=== PATIENT | female | born 1975 | race Caucasian/White ===

== ENCOUNTER 2023-06-18 10:26 | Emergency (ER) | payer BC, SELFPAY ==
[2023-06-18 10:46] VITALS: BP 138/106; PULSE 93; RESP 18; TEMP 37.1; O2SAT 98
--- NOTE | 2023-06-18 11:07 | ED.URI ---
HPI - URI/Sore Throat General Chief Complaint: Upper Respiratory Infection Stated Complaint: COUGH/CONGESTION Time Seen by Provider: 06/18/23 11:07 Source: patient Mode of arrival: ambulatory Limitations: no limitations History of Present Illness HPI Narrative: 48-year-old female presents with complaint of nasal congestion, sinus pressure, postnasal drainage, cough for 8 days. Afebrile. Reports coughing up and blowing out green drainage. Taking Mucinex and jjep-byq-byvnwae sinus medication with no relief of symptoms. No chest pain or shortness of breath. All systems reviewed and negative except as noted above. Related Data Home Medications Medication Instructions Recorded Confirmed srkufoep-xscysgx-fhvf-iron 18 tablet PO 11/23/21 01/06/23 mg-FA 400 mcg-vit K 25 mcg tablet (One-A-Day Women's Complete(with vit K)) Allergies Allergy/AdvReac Type Severity Reaction Status Date / Time No Known Allergies Allergy Verified 01/06/23 10:50 Review of Systems Review of Systems: CONSTITUTIONAL: Denies fever, chills, or sweats. EYES: Denies visual changes, redness, or discharge. ENT: Reports rhinorrhea, congestion. Denies sore throat, or otalgia. CARDIOVASCULAR: Denies chest pain, palpitations, or edema. RESPIRATORY: Reports cough. Denies dyspnea. GASTROINTESTINAL: Denies abdominal pain, nausea, vomiting, or diarrhea. GENITOURINARY: Denies dysuria or hematuria. SKIN: Denies rash or itching. MUSCULOSKELETAL: Denies back pain, joint pain, or myalgia. NEUROLOGIC: Denies headache, numbness, or weakness. PSYCHIATRIC: Denies anxiety or depression. All other systems reviewed are negative, except as documented in HPI. [facility] Past Medical History Medical History History of COVID-19 Hyperlipidemia Stress at home Vitamin D deficiency Surgical History Surgical History Hx laparoscopic cholecystectomy Family History Family History Father Hypertension Mother Hypertension Family history of colonic diverticulitis Grandparent Cerebrovascular accident Family history of Parkinson's disease Family history of pancreatic cancer Family history of lung cancer Social History Social History Smoking status: Never smoker Second hand tobacco smoke exposure: No Alcohol intake: current Alcohol use details: seldom; socially Substance use: never Substance use type: does not use Spiritual care concerns: No Agree to blood products: Yes Comments At time of signature, agree with nursing past medical, surgical, social and family history. There is no relevant family history pertinent to the presenting complaint. Exam Narrative: GENERAL: This is a well-nourished, well-developed patient, in no apparent distress. HEAD: normocephalic, atraumatic. EYES: PERRL. Sclera clear/white. Vision is grossly intact. EARS: External ears normal, auditory canals clear and without drainage, fluid bilateral TMs without erythema or perforation. Hearing grossly intact. NOSE: External nose normal with erythema and mild swelling to nares with mild congestion, skin maxillary sinus tenderness on palpation bilaterally. THROAT: Mucous membranes moist, erythema with postnasal drainage NECK: Neck supple, non-tender without lymphadenopathy, masses or thyromegaly. CARDIOVASCULAR: Regular rate and rhythm without murmurs, gallops, or rubs. RESPIRATORY: Clear to auscultation. Breath sounds equal bilaterally. No wheezes, rales, or rhonchi. GASTROINTESTINAL: Abdomen soft, non-tender, nondistended. Bowel sounds are active. No hepato-splenomegaly, or palpable masses. No guarding. SKIN: warm, Dry, intact with no suspicious lesions or rash, good texture and turgor. NEURO: awake, alert, and oriented to person, place and time.
== END 2023-06-18 11:38 | disposition home or self-care (01) ==
PROVIDERS: Emergency Provider Nurse Practitioner Family; PCP Family Medicine
DX: J01.90 Acute sinusitis, unspecified (principal); E78.5 Hyperlipidemia, unspecified; Z86.16 Personal history of COVID-19
CPT/HCPCS: 99213; G0463

== ENCOUNTER 2024-08-16 13:56 | Outpatient (CLI) | payer OTHER, SELFPAY ==
--- NOTE | 2024-08-16 14:20 | ECG_ITS ---
Test Date: 2024-08-16 14:29:27 Measurements Intervals [place] Rate: 77 P: 22 IL: 140 QRS: -9 QRSD: 85 T: -5 QT: 369 QTc: 420 Interpretive Statements SINUS RHYTHM WITH SINUS ARRHYTHMIA LOW QRS VOLTAGE IN PRECORDIAL LEADS PATTERN CONSISTENT WITH PULMONARY DISEASE BORDERLINE ST-T WAVE ABNORMALITY- ANT/INF LEADS BASELINE ARTIFACT- I, II, III, AVR, AVL, AVF BORDERLINE ECG No previous ECG available for comparison Electronically Signed On 08-16-2024 15:34:36 CDT by Collin Westbrook D.O.
--- OUTSIDE RECORDS SUMMARY | 2024-08-16 14:30 | XMS_ITS | Clinical Summary ---
Author Organization [facility] Address [address] [place] [address] Care Team Providers Care Race Board Attendant Name Role Phone Leigha Doyle MD Primary Care Provider [phone] Allergies No known active allergies Medications lisinopriL (PRINIVIL,ZESTR MD) 10 mg tablet Take 2 tablets (20 mg total) by mouth daily 06/15/2023 Active Active Problems Problem Noted Date Diagnosed Date Routine gynecological examination 07/12/2024 Assessment & Plan (07/12/2024 9:50 AM VICE ADMIRAL): Here for annual exam. 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 Encouraged regular exercise and healthy diet and lifestyle. Monthly SBEs encouraged. Annual mammograms recommended. Encounter for IUD insertion 08/15/2023 Assessment & Plan (08/15/2023 9:37 AM CDT): Mirena IUD inserted without difficulty. Pt tolerated well. Pt to call with any abnormal bleeding or pain and will check pelvic ultrasound. Well woman exam with routine gynecological exam 07/06/2023 Assessment & Plan (07/06/2023 4:09 PM VICE ADMIRAL): Here for annual exam. 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 Encouraged regular exercise and healthy diet and lifestyle. Monthly SBEs encouraged. Annual mammograms recommended. Recommend patient schedule screening colonoscopy. Reviewed risks benefits and potential complications of IUD. Patient may be interested in Kyleena IUD of Mirena IUD. We will decide the day of insertion. Name and number plastic surgeon given for referral for possible breast reduction. 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/2013 Overview (08/11/2016): PLANTAR FIBROMATOSIS Hypertension 09/22/2013 Overview (08/11/2016): HYPERTENSION NOS Sleep apnea 09/22/2013 Overview (08/11/2016): OTH UNSPCF SLEEP APNEA Low back pain 09/22/2013 Overview (08/11/2016): LUMBAGO Anxiety state 09/22/2013 Overview (08/11/2016): ANXIETY STATE NOS Encounters Date Type Department Care Team Description 08/07/2024 3:30 PM CDT Ancillary Procedure [facility] Breast Imaging [address] [place] [address] Screening mammogram, encounter for 07/12/2024 1:56 PM VICE ADMIRAL - 07/12/2024 11:59 PM VICE ADMIRAL Hospital Encounter [facility] [address] [place] [id number] Routine gynecological examination; Screening for malignant neoplasm of the cervix; Special screening examination for human papillomavirus (HPV) Discharge Disposition: Discharge to home or self care 07/12/2024 9:00 AM VICE ADMIRAL Office Visit [facility] [address] [place] [address] Peyton Jackman MD Routine gynecological examination (Primary Dx); Screening for malignant neoplasm of the cervix; Special screening examination for human papillomavirus (HPV) from Last 3 Months Immunizations Immunization Administration Dates Next Due Tdap 10/28/2006 Surgical History Surgery Date Site/Laterality Comments CHOLECYSTECTOMY 2007 Cholecystectomy SECTION 1997 son, 2002 daughter Medical History Medical History Date Comments Hypertension Family History Medical History Relation Name Comments Glioneuroma Daughter Hyperlipidemia Father Hyperlipidemi a; Hypertension Father Hypertension; Pancreatic cancer Maternal Grandmother Hypertension Mother Hypertension; Nephrolithiasis Mother kidney stone s; Relation Name Status Comments Daughter Alive Father Maternal Grandmother Mother Social History Tobacco Use Types Packs/Day Years Used Date Smoking Tobacco: Never Passive Smoke Exposure: Never Smokeless Tobacco: Never Tobacco Cessation:Counseling Given: Not Answered Alcohol Use Standard Drinks/Week Comments Yes 0 (1 standard drink = 0.6 oz pur e alcohol) occassionally AUDIT-C Answer Date Recorded Q1: How often do you have a drink containing alc ohol? 2-4 times a month 07/12/2024 Q2: How many drinks containi ng alcohol do you have on a typical day when you are drinking? 1 or 2 07/12/2024 Frequency of Binge Drinking Not on file 10/2024 Personal Safety Answer Date Recorded Have you ever been in or are you currently in a harmful physical or emotional relationship or is someone making you feel afraid or unsafe? Denies 12/29/2023 Comments No Sex and Gender Information Value Date Recorded Sex Assigned at Not on file Legal Sex Female 11:54 PM VICE ADMIRAL Gender Identity Not on file Sexual Orientation Not on file Obstetrics History Para Term AB IAB SAB Ectopic Multiple Livin g Live Births 2 2 2 2 2 Date Outcome GA Total Labor Labor/2nd/3rd Weight Sex Type Anes PTL Allyn A1 A5 Name Clin 1997 Term M C-Sec tion Living 2002 Term F C-Sec tion Living Last Filed Vital Signs Vital Sign Reading Time Taken Comments Blood Pressure 122/80 07/12/2024 8:45 AM VICE ADMIRAL Pulse 82 12/29/2023 9:39 PM CDT Temperature 36.9 C (98.5 F) 12/29/2023 3:19 PM CDT Respiratory Rate 16 12/29/2023 9:39 PM CDT Oxygen Saturation 100% 12/29/2023 9:39 PM CDT Inhaled Oxygen Concentration - - Weight 92.1 kg (203 lb) 07/12/2024 8:45 AM VICE ADMIRAL Height 165.1 cm (5' 5 ) 07/12/2024 8:45 AM VICE ADMIRAL Body Mass Index 33.78 07/12/2024 8:45 AM VICE ADMIRAL Plan of Treatment Health Maintenance Due Date Last Done Comments Albumin Creatinine Ratio, Urine 1975 Colon Cancer Screening-Colonoscopy 1975 Depression Screening 1975 Hemoglobin A1C 1975 Hepatitis C Screening 1975 Dilated Eye Exam 1975 Foot Exam 1975 Lipid Panel 1975 Hepatitis B Screening 1993 Pneumococcal vaccine <65 (1 of 2 - PCV) 1994 DTaP/Tdap/Td Vaccine (2 - Td or Tdap) 10/28/2016 10/28/2006 Covid-19 Vaccine (2 - 2023-2 5 season) 2024 03/28/2021 eGFR 12/28/2024 12/29/2023 Influenza Vaccine (Season Ended) 2025 Cervical Cancer Screening 07/12/20252024, 06/29/2023, 06/29/2023, Additional history exists Regular Well Visit/Exam 18-64 07/12/2025 07/12/2024, 06/29/2023 Breast Cancer Screening-Mammogram 08/07/2025 08/07/2024, 07/26/2023, 06/28/2022, Additional history exists Procedures Procedure Name Priority Date/Time Associated Diagnosis Comments SCREENING MAMMOGRAM BILATERAL W TE[place]O Schedule Routine, Read Routine (OP Routine) 08/07/2024 3:48 PM CDT Screening mammogram, encounter for THINPREP PROCESSING (MOLECULAR COMPONENT) Routine 07/12/2024 2:11 PM VICE ADMIRAL Routine gynecological examination Screening for malignant neoplasm of the cervix Special screening examination for human papillomavirus (HPV) PAP WITH REFLEX TO HIGH RISK HPV Routine 07/12/2024 9:22 AM VICE ADMIRAL Routine gynecological examination Screening for malignant neoplasm of the cervix Special screening examination for human papillomavirus (HPV) EGFR STAT 12/29/2023 8:19 PM CDT from Last 3 Months or Most Recently Relevant to Health Maintenance Results * Screening Mammogram Bilateral W Te[place] (08/07/2024 3:48 PM CDT) Anatomical Region Laterality Modality Breast Bilateral Mammography Narrative 08/07/2024 4:39 PM CDT Examination: Screening Mammogram Bilateral W Teodoro: 08/07/24 Prior Study Comparisons: Relevant prior studies available at the time of interpretation were reviewed. Findings: Bilateral There is no suspicious mass, calcification, or architectural distortion in either breast. There are scattered areas of fibroglandular density. The patient will be notified of results by letter. Impression: BI-RADS ATLAS category (overall): 2 - Benign Routine Screening Mammogram in 1 Yr is recommended for bilateral Overall Assessment: 2 - Benign us Self Screening Mammogram IMG MAMMO PROCEDURES Fi nal Result * ThinPrep processing (Molecular component) (07/12/2024 2:11 PM VICE ADMIRAL) ThinPrep processing (Molecular component) Specimen received for processing. Endocervical 07/12/2024 2:11 PM VICE ADMIRAL 07/12/2024 2:12 PM VICE ADMIRAL Peyton Jackman MD LAB BODY FLUIDS AND STOOLS ORDERABLES Final Result [place] [address] [facility] [facility] Department [place] [address] * Pap with reflex to High Risk HPV and Genotyping (Cytology Component) (07/12/2024 9:22 AM VICE ADMIRAL) Endocervical (Pap test) 07/12/2024 9:22 AM VICE ADMIRAL 07/13/2024 10:36 AM VICE ADMIRAL Narrative PATHOLOGY [facility] - 07/18/2024 1:41 PM CDT EPIC results best viewed via link to PDF [place] [address] [facility], [place], [place] [address] Tele: Yanni Pino MD - Last Sorter CYTOLOGY REPORT Note to Patients: This report may contain a detailed description of human tissue sent by a health care provider to the laboratory for pathologic evaluation. The content of this report is essential for diagnosis and may provide important critical findings. This information may be unfamiliar to patients to review without a medical professional present. It is advised that the patient review this report in the presence of a health care provider who can answer questions and explain the details. Patient Name: CHRISSY MARTÍNEZ Address: [address] [place] [address]- Gender: F : 1975 (Age: 49) Service: Location: [facility] #: [id number] Patient Type: [facility] SPECIMEN Taken: 07/12/2024 Reported: 07/18/2024 Physician(s): Peyton Jackman M.D. FINAL DIAGNOSIS: SOURCE OF SPECIMEN - ThinPrep Pap w/ reflex HPV: STATEMENT OF ADEQUACY Source: Cervical/Endocervical - Satisfactory for interpretation - Endocervical /Transformation Zone component present - Case screened using computer assisted imaging technology GENERAL CATEGORIZATION: - Negative for intraepithelial lesion or malignancy letw/07/18/2024 13:41Sherie Vaz RN, CT (ASCP) Report Reviewed and Electronically Signed By Sherie Vaz RN, CT (ASCP)Clerical Data Follow A; G0145 CLINICAL DIAGNOSIS AND HISTORY Last Menstrual Period: 05/11/24 Contraceptive History: IUD REPORT IMAGES AND/OR SCANNED DOCUMENTS ONLY VIEWABLE IN PDF FORMAT The Pap test is a screening test used to aid in the detection of cervical cancer and its precursors. It should not be the sole means by which malignant and premalignant lesions are diagnosed. Both false negative and false positive results may occur. It also has poor sensitivity for the detection of endometrial lesions and should not be used to evaluate suspected endometrial abnormalities. For these reasons it is most important to obtain Pap tests at regular intervals, as recommended by your physician or nurse practitioner. Frozen section, operating room consultation, gross examination and dissection, and case sign out may have been performed in part or completely in the following laboratories: [facility], [facility] [place] [facility], [address], [place] [address]. Peyton Jackman MD LAB CYTOLOGY ORDERABLES Fin al Result PATHOLOGY [facility] Laboratory [address] [address] * eGFR (12/29/2023 8:19 PM CDT) eGFR >90 >=60 mL/min/1. 73 m2 Comment: Interpretive Data Reference Interval Normal >/= 90 mL/min/1.73m2 Mildly decreased* 60 - 89 mL/min/1.73m2 Mildly to moderately decreased 45 - 59 mL/min/1.73m2 Moderately to severely decreased 30 - 44 mL/min/1.73m2 Severely decreased 15 - 29 mL/min/1.73m2 Kidney Failure < 15 mL/min/1.73m2 *Relative to young adult level Estimated glomerular filtration rate is determined by the 2020 CKD-EPI equation recommended by the National Kidney Foundation (A Unifying Approach to GFR Estimation: Recommendations of the NKF-ASK Task Force on Reassessing the Inclusion of Race in Diagnosing Kidney Disease, JASN 2020). The CKD-EPI equation should not be used for patients with unstable renal function and has not been validated in children and those over 70. Current interpretive data was last reviewed 2021. Blood 12/29/2023 8:19 PM CDT 12/29/2023 8:34 PM CDT Sho [facility] LAB BLOOD ORDERABLES Final Re sult [place] [address] [address] Department [place] [address] from Last 3 Months or Most Recently Relevant to Health Maintenance Insurance ANTHEM ACCESS BLUE ACCESS OOS BLUE ACCESS OOS BLUE ACCESS OOS Care Teams Race Board Attendant Relationship Specialty Start Date End Date Leigha Doyle MD PCP - General 07/01/16
--- OUTSIDE RECORDS SUMMARY | 2024-08-16 14:30 | XMS_ITS | Referral Summary ---
Author Organization [facility] Address [facility] [place] [address] Care Team Providers Care Pickle Water Pump Operator Name Role Phone Leigha Doyle MD Primary Care Provider [phone] Encounters Date Type Department Care Team Description 08/07/2024 3:30 PM CDT Ancillary Procedure [facility] Breast Imaging [id number] [place] [phone] Screening mammogram, encounter for 07/12/2024 1:56 PM PUBLIC HEALTH AIDE - 07/12/2024 11:59 PM PUBLIC HEALTH AIDE Hospital Encounter [address] [place] [address] Routine gynecological examination; Screening for malignant neoplasm of the cervix; Special screening examination for human papillomavirus (HPV) Discharge Disposition: Discharge to home or self care 07/12/2024 9:00 AM PUBLIC HEALTH AIDE Office Visit [facility] [address] [place] [address] Peyton Jackman MD Routine gynecological examination (Primary Dx); Screening for malignant neoplasm of the cervix; Special screening examination for human papillomavirus (HPV) from Last 3 Months Allergies No known active allergies Medications lisinopriL (PRINIVIL,ZESTR IL) 10 mg tablet Take 2 tablets (20 mg total) by mouth daily 06/15/2023 Active Active Problems Problem Noted Date Diagnosed Date Routine gynecological examination 07/12/2024 Assessment & Plan (07/12/2024 9:50 AM PUBLIC HEALTH AIDE): Here for annual exam. Normal tape weaver exam today. Encouraged regular exercise and healthy [...] 07/06/2023 Assessment & Plan (07/06/2023 4:09 PM PUBLIC HEALTH AIDE): Here for annual exam. Normal tape weaver exam today. Encouraged regular exercise and healthy [...] state 09/22/2013 Overview (08/11/2016): ANXIETY STATE NOS Immunizations Immunization Administration Dates Next Due Tdap 10/28/2006 Social History Tobacco Use Types Packs/Day Years [...] on file Legal Sex Female 11:54 PM PUBLIC HEALTH AIDE Gender Identity Not on file Sexual Orientation Not on file Last Filed Vital Signs Vital Sign Reading Time Taken Comments Blood Pressure 122/80 07/12/2024 8:45 AM PUBLIC HEALTH AIDE Pulse 82 12/29/2023 9:39 PM CDT Temperature 36.9 C (98.5 F) 12/29/2023 3:19 PM CDT Respiratory Rate 16 12/29/2023 9:39 PM CDT Oxygen Saturation 100% 12/29/2023 9:39 PM CDT Inhaled Oxygen Concentration - - Weight 92.1 kg (203 lb) 07/12/2024 8:45 AM PUBLIC HEALTH AIDE Height 165.1 cm (5' 5 ) 07/12/2024 8:45 AM PUBLIC HEALTH AIDE Body Mass Index 33.78 07/12/2024 8:45 AM PUBLIC HEALTH AIDE Plan of Treatment Not on file Procedures Procedure Name Priority Date/Time Associated Diagnosis Comments SCREENING MAMMOGRAM BILATERAL W TEODORO Schedule Routine, Read Routine (OP Routine) 08/07/2024 3:48 PM CDT Screening mammogram, encounter for THINPREP PROCESSING (MOLECULAR COMPONENT) Routine 07/12/2024 2:11 PM PUBLIC HEALTH AIDE Routine gynecological examination Screening for malignant neoplasm of the cervix Special screening examination for human papillomavirus (HPV) PAP WITH REFLEX TO HIGH RISK HPV Routine 07/12/2024 9:22 AM PUBLIC HEALTH AIDE Routine gynecological examination Screening for malignant neoplasm [...] ThinPrep processing (Molecular component) (07/12/2024 2:11 PM PUBLIC HEALTH AIDE) ThinPrep processing (Molecular component) Specimen received for processing. Endocervical 07/12/2024 2:11 PM PUBLIC HEALTH AIDE 07/12/2024 2:12 PM PUBLIC HEALTH AIDE Peyton Jackman MD LAB BODY FLUIDS AND STOOLS ORDERABLES Final Result LOW [facility] [address] Department [place] [address] * Pap with reflex to High Risk HPV and Genotyping (Cytology Component) (07/12/2024 9:22 AM PUBLIC HEALTH AIDE) Endocervical (Pap test) 07/12/2024 9:22 AM PUBLIC HEALTH AIDE 07/13/2024 10:36 AM PUBLIC HEALTH AIDE Narrative PATHOLOGY [facility] - 07/18/2024 1:41 PM CDT EPIC results best viewed via link to PDF [address] [address] Tele: Yanni Pino MD - Gas Dispenser CYTOLOGY REPORT Note to Patients: This report [...] questions and explain the details. Patient Name: ROMEO MARTÍNEZ Address: [address] [place] [address]- Gender: F : 1975 (Age: 49) Service: Location: N : [id number] [facility] #: [id number] Patient Type: [facility] SPECIMEN Taken: 07/12/2024 Reported: 07/18/2024 Physician(s): Peyton [...] part or completely in the following laboratories: [facility], [address], [place] [address] [facility], [address] [facility], [place] [address]. us Peyton Jackman MD LAB CYTOLOGY ORDERABLES Fin al Result PATHOLOGY [facility] Laboratory Receiving [address] [place], [place] [id number] * eGFR (12/29/2023 8:19 PM CDT) eGFR [...] 8:19 PM CDT 12/29/2023 8:34 PM CDT us Sho DEMARCO LAB BLOOD ORDERABLES Final Re sult [place] [address] [address] [place] [address] from Last 3 Months or Most Recently Relevant to Health Maintenance Insurance ANTHEM ACCESS BLUE ACCESS OOS BLUE ACCESS OOS [employer] OOS Member Subscriber Plan / Payer (Ef fective 2019-Present) Name:Romeo Martínez Relation to Subscriber:Self Name:Romeo Martínez Payer ID:[id number] (NAIC) Type: STANLEY Address: [facility] [id number] Care Teams Pickle Water Pump Operator Relationship Specialty Start Date End Date Leigha Doyle MD PCP - General 07/01/16
== END 2024-08-16 13:57 | disposition home or self-care (01) ==
PROVIDERS: PCP Family Medicine; Visit Provider Surgery Plastic and Reconstructive Surgery
DX: Z01.810 Encounter for preprocedural cardiovascular examination (principal); I10 Essential (primary) hypertension; I49.8 Other specified cardiac arrhythmias
CPT/HCPCS: 93005

== ENCOUNTER 2024-08-21 01:15 | Day surgery (SDC) | payer OTHER, SELFPAY ==
[2024-08-14 14:53] VITALS: BMI 32.3
--- NOTE | 2024-08-14 15:01 | PC.NURSE ---
Report to the Outpatient Waiting Room, entrance under the green pavilion located off [facility], at time _0600_ on date _[id number]_. Planned Procedure Time: _0730_.? Time changes happen often and if your time is changed the preop area will call you the afternoon before. - You and your visitor will be asked to self-screen and do not enter if you have any COVID symptoms. Please call surgeon if you need to reschedule. - A mask is optional within the hospital at this time. Patients may have clear liquids (water, carbonated beverages, clear teas, apple juice) until 3 hours prior to surgery with a maximum of 20 ounces. - No food from midnight until time of surgery and no smoking, or chewing tobacco (or any form of nicotine). No chewing gum, candy or mints. Take only the following medications with a SIP of water on the morning of surgery: ___None____ DO NOT STOP ANY OF YOUR OTHER PRESCRIPTION MEDICATIONS PRIOR TO SURGERY EXCEPT THE FOLLOWING Hold all vitamins and supplements for 3 days per anesthesiologist. Medications to discontinue per physician Date to take last plxd___[id number]____ Please no make-up, nail uruguayan, hairspray, perfume, deodorant, or body powder the day of surgery.? No jewelry (including any body piercings) or valuables the day of surgery, leave them at home.? Please take a shower or bath the night before, or the morning of, surgery with an antibacterial soap.? Wear comfortable, loose fitting clothing.? - Jewelry must be removed prior to entering the operating room.? Rings and piercings that are not removed may be cut off. - The hospital will not accept responsibility for valuables.? - Please leave all valuables, including medications, at home the day of surgery. If you are going home after surgery, a licensed swing driver must drive you home.? - NO public transportation without another adult if you receive anesthesia. - We recommend that an adult stay with you for 24 hours following discharge. - We also recommend that you do not drive, make important decision, drink alcoholic beverages, or take any drugs that were not prescribed by your health care provider for at least 24 hours after your discharge time. Follow any additional instructions given to you from your surgeon. Telephone instructions given to __Chrissy___and asked if any additional questions and then verbalized understanding. Patient advised to call surgeon office or pre surgery nurse liaison [phone] if any additional questions.
[2024-08-21] VITALS (9 sets, daily range): BP systolic 94–130; BP diastolic 60–93; PULSE 63–88; RESP 14–17; TEMP 36.4–36.6; O2SAT 95–100; BMI 32.1
--- OUTSIDE RECORDS SUMMARY | 2024-08-21 01:17 | XMS_ITS | Referral Summary ---
Author Organization [facility] Address [facility] [place] [address] Care Team Providers Care Flying Shear Operator Name Role Phone Leigha Doyle MD Primary Care Provider [phone] Encounters Date Type Department Care Team Description 08/07/2024 3:30 PM CDT Ancillary Procedure [facility] Breast Imaging [id number] [place] [phone] Screening mammogram, encounter for 07/12/2024 1:56 PM SPA SUPERVISOR - 07/12/2024 11:59 PM SPA SUPERVISOR Hospital Encounter [address] [place] [address] Routine gynecological examination; Screening for malignant neoplasm of the cervix; Special screening examination for human papillomavirus (HPV) Discharge Disposition: Discharge to home or self care 07/12/2024 9:00 AM SPA SUPERVISOR Office Visit [facility] [address] [place] [address] Peyton Jackman MD Routine gynecological [...] 07/12/2024 Assessment & Plan (07/12/2024 9:50 AM SPA SUPERVISOR): Here for annual exam. Normal visual merchandising director exam today. Encouraged regular exercise and healthy [...] 07/06/2023 Assessment & Plan (07/06/2023 4:09 PM SPA SUPERVISOR): Here for annual exam. Normal visual merchandising director exam today. Encouraged regular exercise and healthy [...] on file Legal Sex Female 11:54 PM SPA SUPERVISOR Gender Identity Not on file Sexual Orientation Not on file Last Filed Vital Signs Vital Sign Reading Time Taken Comments Blood Pressure 122/80 07/12/2024 8:45 AM SPA SUPERVISOR Pulse 82 12/29/2023 9:39 PM CDT Temperature 36.9 C (98.5 F) 12/29/2023 3:19 PM CDT Respiratory Rate 16 12/29/2023 9:39 PM CDT Oxygen Saturation 100% 12/29/2023 9:39 PM CDT Inhaled Oxygen Concentration - - Weight 92.1 kg (203 lb) 07/12/2024 8:45 AM SPA SUPERVISOR Height 165.1 cm (5' 5 ) 07/12/2024 8:45 AM SPA SUPERVISOR Body Mass Index 33.78 07/12/2024 8:45 AM SPA SUPERVISOR Plan of Treatment Not on file Procedures Procedure Name Priority Date/Time Associated Diagnosis Comments SCREENING MAMMOGRAM BILATERAL W TEODORO Schedule Routine, Read Routine (OP Routine) 08/07/2024 3:48 PM CDT Screening mammogram, encounter for THINPREP PROCESSING (MOLECULAR COMPONENT) Routine 07/12/2024 2:11 PM SPA SUPERVISOR Routine gynecological examination Screening for malignant neoplasm of the cervix Special screening examination for human papillomavirus (HPV) PAP WITH REFLEX TO HIGH RISK HPV Routine 07/12/2024 9:22 AM SPA SUPERVISOR Routine gynecological examination Screening for malignant neoplasm [...] ThinPrep processing (Molecular component) (07/12/2024 2:11 PM SPA SUPERVISOR) ThinPrep processing (Molecular component) Specimen received for processing. Endocervical 07/12/2024 2:11 PM SPA SUPERVISOR 07/12/2024 2:12 PM SPA SUPERVISOR Peyton Jackman MD LAB BODY FLUIDS AND STOOLS ORDERABLES Final Result LOW [facility] [address] Department [place] [address] * Pap with reflex to High Risk HPV and Genotyping (Cytology Component) (07/12/2024 9:22 AM SPA SUPERVISOR) Endocervical (Pap test) 07/12/2024 9:22 AM SPA SUPERVISOR 07/13/2024 10:36 AM SPA SUPERVISOR Narrative PATHOLOGY [facility] - 07/18/2024 1:41 PM CDT EPIC results best viewed via link to PDF [address] [address] Tele: Yanni Pino MD - Pony Roll Finisher CYTOLOGY REPORT Note to Patients: This report [...] the details. Patient Name: ROMEO MARTÍNEZ Address: [address] [place] [address]- Gender: F : 1975 (Age: 49) Service: Location: N : [id number] [facility] #: [id number] Patient Type: [facility] SPECIMEN Taken: 07/12/2024 [...] part or completely in the following laboratories: [facility], [address], [place] [address] [facility], [address] [facility], [place] [address]. us Peyotn Jackman MD LAB CYTOLOGY ORDERABLES Fin al Result PATHOLOGY [facility] Laboratory Receiving [address] [place], [place] [id number] * eGFR (12/29/2023 8:19 PM CDT) eGFR [...] BLOOD ORDERABLES Final Re sult [facility] [place] [address] [address] [place] [address] from Last 3 Months or Most Recently Relevant to Health Maintenance Insurance ANTHEM ACCESS BLUE ACCESS OOS BLUE ACCESS OOS [facility] OOS Member Subscriber Plan / Payer (Ef fective 2019-Present) Name:Romeo Martínez Relation to Subscriber:Self Name:Romeo Martínez Payer ID:[id number] (NAIC) Type: STANLEY Address: [facility] [id number] Care Teams Flying Shear Operator Relationship Specialty Start Date End Date Leigha Doyle MD PCP - General 07/01/16
--- OUTSIDE RECORDS SUMMARY | 2024-08-21 01:17 | XMS_ITS | Clinical Summary ---
Author Organization [facility] Address [address] [place] [address] Care Team Providers Care Location Director Name Role Phone Leigha Doyle MD Primary Care Provider [phone] Allergies No known active allergies Medications lisinopriL (PRINIVIL,ZESTR NE) 10 mg tablet Take 2 tablets (20 mg total) by mouth daily 06/15/2023 Active Active Problems Problem Noted Date Diagnosed Date Routine gynecological examination 07/12/2024 Assessment & Plan (07/12/2024 9:50 AM STEAM TRAP MAN): Here for annual exam. Normal pattern developer exam today. Encouraged regular exercise and healthy [...] 07/06/2023 Assessment & Plan (07/06/2023 4:09 PM STEAM TRAP MAN): Here for annual exam. Normal pattern developer exam today. Encouraged regular exercise and healthy [...] Description 08/07/2024 3:30 PM CDT Ancillary Procedure [facility] [address] [place] [address] Screening mammogram, encounter for 07/12/2024 1:56 PM STEAM TRAP MAN - 07/12/2024 11:59 PM STEAM TRAP MAN Hospital Encounter [facility] [address] [place] [phone] Routine gynecological examination; Screening for malignant neoplasm of the cervix; Special screening examination for human papillomavirus (HPV) Discharge Disposition: Discharge to home or self care 07/12/2024 9:00 AM STEAM TRAP MAN Office Visit [facility] [address] [place] [address] Peyton Jackman MD Routine gynecological examination (Primary [...] on file Legal Sex Female 11:54 PM STEAM TRAP MAN Gender Identity Not on file Sexual Orientation [...] Comments Blood Pressure 122/80 07/12/2024 8:45 AM STEAM TRAP MAN Pulse 82 12/29/2023 9:39 PM CDT Temperature 36.9 C (98.5 F) 12/29/2023 3:19 PM CDT Respiratory Rate 16 12/29/2023 9:39 PM CDT Oxygen Saturation 100% 12/29/2023 9:39 PM CDT Inhaled Oxygen Concentration - - Weight 92.1 kg (203 lb) 07/12/2024 8:45 AM STEAM TRAP MAN Height 165.1 cm (5' 5 ) 07/12/2024 8:45 AM STEAM TRAP MAN Body Mass Index 33.78 07/12/2024 8:45 AM STEAM TRAP MAN Plan of Treatment Health Maintenance Due Date [...] PROCESSING (MOLECULAR COMPONENT) Routine 07/12/2024 2:11 PM STEAM TRAP MAN Routine gynecological examination Screening for malignant neoplasm of the cervix Special screening examination for human papillomavirus (HPV) PAP WITH REFLEX TO HIGH RISK HPV Routine 07/12/2024 9:22 AM STEAM TRAP MAN Routine gynecological examination Screening for malignant neoplasm [...] ThinPrep processing (Molecular component) (07/12/2024 2:11 PM STEAM TRAP MAN) ThinPrep processing (Molecular component) Specimen received for processing. Endocervical 07/12/2024 2:11 PM STEAM TRAP MAN 07/12/2024 2:12 PM STEAM TRAP MAN Peyton Jackman MD LAB BODY FLUIDS AND STOOLS ORDERABLES Final Result [facility] [address] [address] [facility] [place] [address] * Pap with reflex to High Risk HPV and Genotyping (Cytology Component) (07/12/2024 9:22 AM STEAM TRAP MAN) Endocervical (Pap test) 07/12/2024 9:22 AM STEAM TRAP MAN 07/13/2024 10:36 AM STEAM TRAP MAN Narrative PATHOLOGY [facility] - 07/18/2024 1:41 PM CDT EPIC results best viewed via link to PDF [address] [facility], [place], [place] [address] Tele: Yanni Pino MD - Beadworker CYTOLOGY REPORT Note to Patients: This report [...] the details. Patient Name: CHRISSY MARTÍNEZ Address: [address] [place] [address]- Gender: F : 1975 (Age: 49) Service: Location: [facility] #: [id number] Patient Type: [facility] [place] Taken: 07/12/2024 Reported: 07/18/2024 Physician(s): Peyton [...] part or completely in the following laboratories: [facility], [facility] [facility], [address], [place] [address]. Peyton Jackman MD LAB CYTOLOGY ORDERABLES Fin al Result PATHOLOGY [facility] Laboratory Receiving [place] [address] * eGFR (12/29/2023 8:19 PM CDT) eGFR [...] LAB BLOOD ORDERABLES Final Re sult [place] [address] [address] Department [place] [address] from Last 3 Months or Most Recently Relevant to Health Maintenance Insurance ANTHEM ACCESS BLUE ACCESS OOS BLUE ACCESS OOS BLUE ACCESS OOS Care Teams Location Director Relationship Specialty Start Date End Date Leigha Doyle MD PCP - General 07/01/16
[2024-08-21 06:28] LABS: Urine Cotinine NEGATIVE
[2024-08-21] MEDS: TRANEXAMIC ACID 1,000MG/ISO100 1,000 MG/100 ML BAG 200 MG IVPB (06:44)
--- NOTE | 2024-08-21 06:51 | P.PNAN_ITS ---
Anes - Initial Pre Proc Eval Procedure: Operation Date: 08/21/24 07:30 Proposed Procedures p Bilateral Breast Reduction - Anibal Macias MD Date/Time: 08/21/24 06:51 Surgeon: Anibal Macias MD Pre Op Diagnosis: macromastia Patient Data Age: 49 Gender: F Height: 1.68 m Weight: 90.1 kg Last Vital Signs Temp 36.6 C 08/21/24 06:42 Pulse 87 08/21/24 06:42 BP 130/93 H 08/21/24 06:42 Pulse Ox 98 08/21/24 06:42 O2 Del Method Room Air 08/21/24 06:42 Allergies Allergy/AdvReac Type Severity Reaction Status Date / Time No Known Allergies Allergy Verified 08/21/24 06:41 Home Medications ?Medication ?Instructions ?Recorded ?Confirmed ?Type qionumoh-kfxzxna-xvma-iron 18 1 tablet PO DAILY 11/23/21 08/21/24 History mg-FA 400 mcg-vit K 25 mcg tablet (One-A-Day Women's Complete(with vit K)) lisinopril 20 mg tablet 20 mg PO DAILY #90 tabs 01/17/24 08/21/24 Rx Laboratory Tests 08/21/24 06:04 Cotinine Negative Patient hx anesthesia problems: none Family hx anesthesia problems: none Results Review: All pre-operative results and documents have been reviewed as part of the pre- operative evaluation. [facility] Past Medical History Medical History Hypertension Vitamin D deficiency Stress at home Hyperlipidemia History of COVID-19 Surgical History Surgical History Hx laparoscopic cholecystectomy Family History Family History Father Hypertension Mother Hypertension Family history of colonic diverticulitis Grandparent Cerebrovascular accident Family history of Parkinson's disease Family history of pancreatic cancer Family history of lung cancer Social History Social History Smoking status: Never smoker Second hand tobacco smoke exposure: No Alcohol intake: current Alcohol use details: seldom; socially Substance use: never Substance use type: does not use Living arrangements: with family Spiritual care concerns: No Agree to blood products: Yes Anes - Eval Final PreProcedure Day of Procedure 08/21/24 06:51 Patient weight: obese Heart: regular rate and rhythm Lungs: clear to auscultation Airway: Mallampati scale class II Neurological: alert and oriented Last oral intake: >/= 8 hours ASA classification: II Emergent: no Anesthetic plan: proceed Anesthesia type and monitoring: general LMA and standard monitoring Results Review: All pre-operative results and documents have been reviewed as part of the pre- operative evaluation. Informed Consent: The patient's anesthetic plan and its attendant risks and benefits were discussed with the patient/family/POA. Questions were solicited and answers provided to the satisfaction of the patient/family/POA.
--- NOTE | 2024-08-21 07:01 | WPDHPUPDATE1 ---
History and Physical Update Update Date/Time: 08/21/24 07:01 History and Physical has been reviewed, including an updated exam of the patient. There are NO changes in the patient's condition. Risks, benefits, and alternatives have been discussed and questions answered. Patient agrees to proceed with procedure.
--- NOTE | 2024-08-21 07:22 | P.OP_ITS ---
Procedure Note - Detailed Date of Procedure 08/21/24 Pre-op Diagnosis macromastia Post-op Diagnosis Same Procedure Performed Bilateral reduction mammaplasty Surgeon Anibal Macias MD Anesthesia General Findings Inverted T Superior medial pedicle Tissue removed: Right: 723 grams Left: 862 grams Lipoaspirate: 300 cc Description of Procedure She is here today for bilateral breast reduction. Previously and again today the risks, benefits, alternatives were discussed in extensive detail. I wanted her to be very realistic about the risks involved as well as expectations. We discussed aftercare and what to monitor for. She understands we can never guar antee final breast size and there will always be asymmetry. I was very upfront and honest about the risks of sensation change and even nipple loss (). Made sure answered all of her questions to her satisfaction today and consent was obtained. She was marked in the preoperative holding area with their verification. The patient was taken to the operating room placed supine on the operating table. Anesthesia was provided by anesthesiology. She was prepped and draped in a standard sterile fashion. A surgical time-out was taken. Stab incisions were made and I tumesced with a tumescent solution. Suction lipectomy of lateral breast / chest wall was completed for contouring based on S.A.F.E. liposuction techniques utilizing a 4mm basket cannula. This was based on preoperative planning, intraoperative observation, and a rolling pinch test which was in full agreement. I marked out the nipple-areolar complex at 42 mm. I then de-epithelialized the pedicle. The pedicle was well left well more than 2 cm in thickness. I then removed the inferior portion of the breast as well as the central keel to get shape based on preoperative planning. At this point copiously irrigated with saline solution and verified a strict hemostasis. I reapproximated the pillars using a 2-0 PDS. I tailor tacked the breast into place with debra. She was placed in a sitting position. I verified the nipple-areolar complex position based on preoperative markings, intraoperative measurements, and observation which were in full agreement. This nipple-areolar complex was marked at 42 mm in size. I then placed supine and de-epithelialized this. Nipple-areolar complex was inset with 3-0 Monocryl. I closed IMF deep with 1 strattafix. I closed the vertical incision with 3-0 Monocryl in the IMF with 3- 0 stratafix. Then everything was closed using a running subcuticular 4-0 Monocryl and tissue glue. A dressing was placed followed by surgical bra. Patient was awoke and taken to PACU without difficulty. All instrument sponge counts were correct at the end of the case. Estimated Blood Loss 60 Drains No Packing No Pathology Yes (Bilateral breast tissue) Complications No immediate complications Condition Stable Disposition PACU
[2024-08-21] MEDS: SCOPOLAMINE 1 MG PATCH 1 PATCH TRANSDERM (07:23)
[2024-08-21] MEDS: LACTATED RINGERS 1,000 ML 30 ML IV CONT ×2 (07:23→10:40)
[2024-08-21] MEDS: ceFAZolin 2 GM/D5W 50 ML 2 GM/50 ML BAG IVPB (07:27)
[2024-08-21] MEDS: LACTATED RINGERS IRRIG 1,000 ML, LIDOCAINE 1% LOCAL INJ 50 ML, EPINEPHrine HCL INJ 1 MG... INFILTRATE (07:27)
[2024-08-21] MEDS: oxyCODONE HCL (*CRX) 5 MG TAB IR PO (11:49)
== END 2024-08-21 12:35 | disposition home or self-care (01) ==
PROVIDERS: PCP Family Medicine; Visit Provider Surgery Plastic and Reconstructive Surgery
PROC: 0HBV0ZZ Excision of Bilateral Breast, Open Approach (ICD-10-PCS; CPT 19318; principal; 2024-08-21 07:30)
DX: N62 Hypertrophy of breast (principal)
CPT/HCPCS: 19318; 80307; 88305; A9270; J0171; J0690; J1100; J1171; J1200; J2003; J2250; J2371; J2405; J2704; J3010; J7120

== ENCOUNTER 2024-08-24 09:51 | Outpatient (CLI) | payer BC, SELFPAY ==
--- NOTE | ~2024-08-24 | US_ITS ---
EXAMINATION: US venous doppler LE RT DATE: 08/24/2024 10:25 INDICATION: Right lower extremity pain TECHNIQUE: Grayscale ultrasound images without and with compression and Doppler ultrasound images of the right lower extremity veins were obtained. COMPARISON: None. FINDINGS: The visualized portions of right common femoral vein, profunda (deep) femoral vein, femoral vein, pop liteal vein, peroneal veins, posterior tibial veins, and greater saphenous vein outflow are patent. IMPRESSION: 1. No deep venous thrombosis. Reviewed, dictated and finalized at location A.
--- OUTSIDE RECORDS SUMMARY | 2024-08-24 10:00 | XMS_ITS | Referral Summary ---
Author Organization [facility] Address [facility] [place] [address] Care Team Providers Care Metallurgist Process Name Role Phone Leigha Doyle MD Primary Care Provider [phone] Encounters Date Type Department Care Team Description 08/07/2024 3:30 PM CDT Ancillary Procedure [facility] [id number] [place] [phone] Screening mammogram, encounter for 07/12/2024 1:56 PM TOOL/DIE MAKER - 07/12/2024 11:59 PM TOOL/DIE MAKER Hospital Encounter [place] [id number] [place] [address] Routine gynecological examination; Screening for malignant neoplasm of the cervix; Special screening examination for human papillomavirus (HPV) Discharge Disposition: Discharge to home or self care 07/12/2024 9:00 AM TOOL/DIE MAKER Office Visit [facility] [address] [facility] [address] [place] [address] Peyton Jackman MD Routine gynecological [...] 07/12/2024 Assessment & Plan (07/12/2024 9:50 AM TOOL/DIE MAKER): Here for annual exam. Normal rig operator exam today. Encouraged regular exercise and healthy [...] 07/06/2023 Assessment & Plan (07/06/2023 4:09 PM TOOL/DIE MAKER): Here for annual exam. Normal rig operator exam today. Encouraged regular exercise and healthy [...] on file Legal Sex Female 11:54 PM TOOL/DIE MAKER Gender Identity Not on file Sexual Orientation Not on file Last Filed Vital Signs Vital Sign Reading Time Taken Comments Blood Pressure 122/80 07/12/2024 8:45 AM TOOL/DIE MAKER Pulse 82 12/29/2023 9:39 PM CDT Temperature 36.9 C (98.5 F) 12/29/2023 3:19 PM CDT Respiratory Rate 16 12/29/2023 9:39 PM CDT Oxygen Saturation 100% 12/29/2023 9:39 PM CDT Inhaled Oxygen Concentration - - Weight 92.1 kg (203 lb) 07/12/2024 8:45 AM TOOL/DIE MAKER Height 165.1 cm (5' 5 ) 07/12/2024 8:45 AM TOOL/DIE MAKER Body Mass Index 33.78 07/12/2024 8:45 AM TOOL/DIE MAKER Plan of Treatment Not on file Procedures Procedure Name Priority Date/Time Associated Diagnosis Comments SCREENING MAMMOGRAM BILATERAL W TEODORO Schedule Routine, Read Routine (OP Routine) 08/07/2024 3:48 PM CDT Screening mammogram, encounter for THINPREP PROCESSING (MOLECULAR COMPONENT) Routine 07/12/2024 2:11 PM TOOL/DIE MAKER Routine gynecological examination Screening for malignant neoplasm of the cervix Special screening examination for human papillomavirus (HPV) PAP WITH REFLEX TO HIGH RISK HPV Routine 07/12/2024 9:22 AM TOOL/DIE MAKER Routine gynecological examination Screening for malignant neoplasm [...] ThinPrep processing (Molecular component) (07/12/2024 2:11 PM TOOL/DIE MAKER) ThinPrep processing (Molecular component) Specimen received for processing. Endocervical 07/12/2024 2:11 PM TOOL/DIE MAKER 07/12/2024 2:12 PM TOOL/DIE MAKER Peyton Jackman MD LAB BODY FLUIDS AND STOOLS ORDERABLES Final Result LOW [facility] [address] [place] [address] * Pap with reflex to High Risk HPV and Genotyping (Cytology Component) (07/12/2024 9:22 AM TOOL/DIE MAKER) Endocervical (Pap test) 07/12/2024 9:22 AM TOOL/DIE MAKER 07/13/2024 10:36 AM TOOL/DIE MAKER Narrative PATHOLOGY [facility] - 07/18/2024 1:41 PM CDT EPIC results best viewed via link to PDF [address] [address] Tele: Yanni Pino MD - C Engineer CYTOLOGY REPORT Note to Patients: This report [...] the details. Patient Name: ROMEO MARTÍNEZ Address: [address] [place] [address]- Gender: F : 1975 (Age: 49) Service: Location: N : [id number] [facility] #: [id number] Patient Type: [facility] SPECIMEN Taken: 07/12/2024 Reported: 07/18/2024 Physician(s): Peyton [...] part or completely in the following laboratories: [facility], [address], [place] [address] [facility], [address] [facility], [place] [address]. us Peyton Jackman MD LAB CYTOLOGY ORDERABLES Fin al Result PATHOLOGY [facility] Laboratory Receiving [address] [place], [place] [id number] * eGFR (12/29/2023 8:19 PM CDT) eGFR [...] BLOOD ORDERABLES Final Re sult [facility] [place] [address] [place] [address] from Last 3 Months or Most Recently Relevant to Health Maintenance Insurance ANTHEM ACCESS BLUE ACCESS OOS BLUE ACCESS OOS [employer] OOS Member Subscriber Plan / Payer (Ef fective 2019-Present) Name:Romeo Martínez Relation to Subscriber:Self Name:Romeo Martínez Payer ID:[id number] (NAIC) Type: [place] Address: [facility] [id number] Care Teams Metallurgist Process Relationship Specialty Start Date End Date Leigha Doyle MD PCP - General 07/01/16
--- OUTSIDE RECORDS SUMMARY | 2024-08-24 10:00 | XMS_ITS | Clinical Summary ---
Author Organization [facility] Address [address] [place] [address] Care Team Providers Care Rn Night Name Role Phone Leigha Doyle MD Primary Care Provider [phone] Allergies No known active allergies Medications lisinopriL (PRINIVIL,ZESTR GA) 10 mg tablet Take 2 tablets (20 mg total) by mouth daily 06/15/2023 Active Active Problems Problem Noted Date Diagnosed Date Routine gynecological examination 07/12/2024 Assessment & Plan (07/12/2024 9:50 AM CHIEF RELAY TESTER): Here for annual exam. Normal trim setter exam today. Encouraged regular exercise and healthy [...] 07/06/2023 Assessment & Plan (07/06/2023 4:09 PM CHIEF RELAY TESTER): Here for annual exam. Normal trim setter exam today. Encouraged regular exercise and healthy [...] Description 08/07/2024 3:30 PM CDT Ancillary Procedure [facility] [address] [place] [address] Screening mammogram, encounter for 07/12/2024 1:56 PM CHIEF RELAY TESTER - 07/12/2024 11:59 PM CHIEF RELAY TESTER Hospital Encounter [facility] [address] [place] [phone] Routine gynecological examination; Screening for malignant neoplasm of the cervix; Special screening examination for human papillomavirus (HPV) Discharge Disposition: Discharge to home or self care 07/12/2024 9:00 AM CHIEF RELAY TESTER Office Visit [facility] [address] [facility] [address] [place] [address] Peyton Jackman MD Routine gynecological examination (Primary [...] on file Legal Sex Female 11:54 PM CHIEF RELAY TESTER Gender Identity Not on file Sexual Orientation [...] Comments Blood Pressure 122/80 07/12/2024 8:45 AM CHIEF RELAY TESTER Pulse 82 12/29/2023 9:39 PM CDT Temperature 36.9 C (98.5 F) 12/29/2023 3:19 PM CDT Respiratory Rate 16 12/29/2023 9:39 PM CDT Oxygen Saturation 100% 12/29/2023 9:39 PM CDT Inhaled Oxygen Concentration - - Weight 92.1 kg (203 lb) 07/12/2024 8:45 AM CHIEF RELAY TESTER Height 165.1 cm (5' 5 ) 07/12/2024 8:45 AM CHIEF RELAY TESTER Body Mass Index 33.78 07/12/2024 8:45 AM CHIEF RELAY TESTER Plan of Treatment Health Maintenance Due Date [...] PROCESSING (MOLECULAR COMPONENT) Routine 07/12/2024 2:11 PM CHIEF RELAY TESTER Routine gynecological examination Screening for malignant neoplasm of the cervix Special screening examination for human papillomavirus (HPV) PAP WITH REFLEX TO HIGH RISK HPV Routine 07/12/2024 9:22 AM CHIEF RELAY TESTER Routine gynecological examination Screening for malignant neoplasm [...] ThinPrep processing (Molecular component) (07/12/2024 2:11 PM CHIEF RELAY TESTER) ThinPrep processing (Molecular component) Specimen received for processing. Endocervical 07/12/2024 2:11 PM CHIEF RELAY TESTER 07/12/2024 2:12 PM CHIEF RELAY TESTER Peyton Jackman MD LAB BODY FLUIDS AND STOOLS ORDERABLES Final Result [facility] [place] [address] [facility] Department [place] [address] * Pap with reflex to High Risk HPV and Genotyping (Cytology Component) (07/12/2024 9:22 AM CHIEF RELAY TESTER) Endocervical (Pap test) 07/12/2024 9:22 AM CHIEF RELAY TESTER 07/13/2024 10:36 AM CHIEF RELAY TESTER Narrative PATHOLOGY [facility] - 07/18/2024 1:41 PM CDT EPIC results best viewed via link to PDF [place] [id number] [facility], [place], [place] [address] Tele: Yanni Pino MD - Supervisor Irrigation CYTOLOGY REPORT Note to Patients: This report [...] the details. Patient Name: CHRISSY MARTÍNEZ Address: [address] [place] [address]- Gender: F : 1975 (Age: 49) Service: Location: [facility] #: [id number] Patient Type: [facility] SPECIMEN Taken: 07/12/2024 Reported: 07/18/2024 Physician(s): Peyton [...] part or completely in the following laboratories: [facility], [facility] [facility], [address], [place] [address]. Peyton Jackman MD LAB CYTOLOGY ORDERABLES Fin al Result PATHOLOGY [facility] Laboratory Receiving [address] [place] [address] * eGFR (12/29/2023 8:19 PM CDT) eGFR [...] LAB BLOOD ORDERABLES Final Re sult [facility] [address] Department [place] [address] from Last 3 Months or Most Recently Relevant to Health Maintenance Insurance ANTHEM ACCESS BLUE ACCESS OOS BLUE ACCESS OOS BLUE ACCESS OOS Care Teams Rn Night Relationship Specialty Start Date End Date Leigha Doyle MD PCP - General 07/01/16
== END 2024-08-24 09:52 | disposition home or self-care (01) ==
PROVIDERS: PCP Family Medicine; Visit Provider Surgery Plastic and Reconstructive Surgery
DX: M79.661 Pain in right lower leg (principal)
CPT/HCPCS: 93971